=== PATIENT | female | born 1935 | race Caucasian/White ===

== ENCOUNTER 2018-05-30 12:39 | Emergency (ER) | payer MEDICARE ==
[~2018-05-30] VITALS: Ht 154.9 cm; Wt 63.5 kg
[~2018-05-30 12:39] MED LIST: AMBIEN10 MG PO
--- NOTE | 2018-05-30 14:36 | Diagnostic Imaging Report ---
Exam: Right knee radiographs-3 views History: Knee pain. Comparison: None. Findings: No evidence of acute fracture, malalignment, or soft tissue abnormality. There are moderate lateral and patellofemoral compartment predominant degenerative changes. Atherosclerotic vascular calcifications. 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 No acute osseous abnormality. Signed by: Dr. Jun Mcgowan MD on 05/30/2018 2:33 PM
[2018-05-30] MEDS ORDERED: ULTRAM 50MG50 MG PO (15:02)
[2018-05-30] MEDS ORDERED: CLONIDINE HCL 0.2 MG TAB PO ONE (16:45)
[2018-05-30 18:58] VITALS: BP 196/96
== END 2018-05-30 17:18 | disposition home or self-care (01) ==
LOC: ER 12:39
DX: M25.561 Pain in right knee (principal); R26.2 Difficulty in walking, not elsewhere classified
CPT/HCPCS: 99283

== ENCOUNTER 2020-12-31 18:26 | Inpatient (IN) | payer MEDICARE ==
[~2020-12-31] VITALS: Ht 152.4 cm; Wt 50.3 kg
[~2020-12-31 18:26] MED LIST changes: +ULTRAM 50MG50 MG PO
[2020-12-31 19:55] LABS: BASOPHILS # (AUTO) 0.1 (0.0-0.1); BASOPHILS % 0.6 % (0.0-1.0); EOSINOPHILS % 0.1 % (0.0-6.0); HEMATOCRIT 41.5 % (34.2-44.1); HEMOGLOBIN 13.6 g/dL (12.0-16.0); LYMPHOCYTES # (AUTO) 1.8 (1.0-3.2); LYMPHOCYTES % 12.3 % (18.0-39.1); MEAN CORPUSCULAR HGB CONC 32.8 g/dL (31-35); MEAN CORPUSCULAR VOLUME 97.6 fL (81-99); MONOCYTES # (AUTO) 1.1 (0.2-0.8); MONOCYTES % 7.6 % (4.4-11.3); NEUTROPHILS # (AUTO) 11.2 (2.1-6.9); NEUTROPHILS % 78.7 % (38.7-80.0); PLATELET COUNT 281 x10e3/uL (140-360); RED BLOOD COUNT 4.25 x10e6/uL (3.6-5.1); RED CELL DISTRIBUTION WIDTH 12.4 % (11.7-14.4)
[2020-12-31 19:59] LABS: INR 1.1; PROTHROMBIN TIME 14.4 seconds (11.9-14.5)
[2020-12-31 20:00] LABS: PARTIAL THROMBOPLASTIN TIME 30.1 seconds (23.8-35.5)
[2020-12-31 20:10] LABS: ALBUMIN 2.9 g/dL (3.5-5.0); ALBUMIN/GLOBULIN RATIO 0.8 (0.8-2.0); CALCIUM 10.2 mg/dL (8.4-10.2); CREATININE, SERUM 0.83 mg/dL (0.57-1.11)
[2020-12-31 20:11] LABS: AMYLASE 39 U/L (25-125); LIPASE 33 U/L (8-78)
[2020-12-31] MEDS ORDERED: IOPAMIDOL 370 MG/ML 200 ML INFUS..BTL INJ ONE (22:14)
[2020-12-31] MEDS ORDERED: ONDANSETRON HCL INJ 2MG/ML 2ML 2 MG/ML VIAL IV PRN (22:15)
[2020-12-31] MEDS: SODIUM CHLORIDE 0.9% 1000ML 1,000 ML IV SCH (22:15)
[2020-12-31] MEDS ORDERED: SODIUM CHLORIDE 0.9% 50ML 50 ML ONE (22:15)
[2021-01-01] MEDS: SODIUM CHLORIDE 0.9% 1000ML 1,000 ML IV SCH ×2 (06:22→11:38)
[2021-01-01 07:13] LABS: CLARITY,URINE CLEAR (CLEAR); COLOR,URINE YELLOW (YELLOW)
[2021-01-01 07:14] LABS: KETONES,URINE NEGATIVE (NEGATIVE); LEUKOCYTE ESTERASE ,URINE NEGATIVE (NEGATIVE); NITRITE,URINE NEGATIVE (NEGATIVE); PROTEIN,URINE DIPSTICK 1+ (NEGATIVE); URINE UROBILINOGEN 0.2 mg/dL (0.2 - 1)
[2021-01-01 07:47] LABS: BACTERIA,URINE MODERATE /HPF; EPITHELIAL CELLS,URINE MODERATE /LPF; RBC,URINE 0-5 /HPF (0-5); WBC,URINE (MAN) >50 /HPF (0-5)
[2021-01-01] MEDS ORDERED: ZOLPIDEM TARTRATE 10 MG TAB PO PRN (09:00)
[2021-01-01] MEDS ORDERED: TRAMADOL HCL 50 MG TAB PO PRN (09:00)
[2021-01-01] MEDS: CEFTRIAXONE 1 GM in SODIUM CHLORIDE 0.9% 50ML 50 ML IV SCH ×2 (09:10→20:21)
[2021-01-01 11:30] VITALS: BP 129/54
[2021-01-01 11:43] VITALS: BP 129/54
[2021-01-01 11:48] VITALS: BP 129/54
[2021-01-01 12:16] LABS: BASOPHILS # (AUTO) 0.1 (0.0-0.1); BASOPHILS % 0.8 % (0.0-1.0); EOSINOPHILS # (AUTO) 0.2 (0.0-0.4); EOSINOPHILS % 1.3 % (0.0-6.0); HEMATOCRIT 36.4 % (34.2-44.1); HEMOGLOBIN 11.8 g/dL (12.0-16.0); LYMPHOCYTES # (AUTO) 2.4 (1.0-3.2); LYMPHOCYTES % 18.1 % (18.0-39.1); MEAN CORPUSCULAR HEMOGLOBIN 31.6 pg (28-32); MEAN CORPUSCULAR HGB CONC 32.4 g/dL (31-35); MEAN CORPUSCULAR VOLUME 97.6 fL (81-99); MONOCYTES # (AUTO) 1.4 (0.2-0.8); MONOCYTES % 10.8 % (4.4-11.3); NEUTROPHILS # (AUTO) 9.1 (2.1-6.9); PLATELET COUNT 254 x10e3/uL (140-360); RED BLOOD COUNT 3.73 x10e6/uL (3.6-5.1); RED CELL DISTRIBUTION WIDTH 12.4 % (11.7-14.4)
[2021-01-01 12:55] LABS: ALBUMIN 2.6 g/dL (3.5-5.0); ALBUMIN/GLOBULIN RATIO 0.7 (0.8-2.0); CALCIUM 9.7 mg/dL (8.4-10.2); CREATININE, SERUM 0.71 mg/dL (0.57-1.11)
[2021-01-01 16:35] VITALS: BP 139/70
[2021-01-01 20:00] VITALS: BP 170/72
[2021-01-01 22:58] VITALS: BP 170/72
[2021-01-02] VITALS: BP 143/65
[2021-01-02 04:00] VITALS: BP 140/66
[2021-01-02 06:26] LABS: BASOPHILS # (AUTO) 0.1 (0.0-0.1); BASOPHILS % 1.1 % (0.0-1.0); EOSINOPHILS # (AUTO) 0.5 (0.0-0.4); EOSINOPHILS % 4.2 % (0.0-6.0); HEMATOCRIT 31.9 % (34.2-44.1); HEMOGLOBIN 11.2 g/dL (12.0-16.0); LYMPHOCYTES # (AUTO) 2.4 (1.0-3.2); LYMPHOCYTES % 20.5 % (18.0-39.1); MEAN CORPUSCULAR HEMOGLOBIN 34.8 pg (28-32); MEAN CORPUSCULAR HGB CONC 35.1 g/dL (31-35); MEAN CORPUSCULAR VOLUME 99.1 fL (81-99); MONOCYTES # (AUTO) 1.2 (0.2-0.8); MONOCYTES % 10.5 % (4.4-11.3); NEUTROPHILS # (AUTO) 7.2 (2.1-6.9); NEUTROPHILS % 62.6 % (38.7-80.0); PLATELET COUNT 203 x10e3/uL (140-360); RED BLOOD COUNT 3.22 x10e6/uL (3.6-5.1)
[2021-01-02 06:50] LABS: CALCIUM 9.2 mg/dL (8.4-10.2); CREATININE, SERUM 0.66 mg/dL (0.57-1.11)
[2021-01-02 07:57] VITALS: BP 145/71
[2021-01-02 08:00] VITALS: BP 145/71
[2021-01-02] MEDS: SODIUM CHLORIDE 0.9% 1000ML 1,000 ML IV SCH (08:00)
[2021-01-02] MEDS: CEFTRIAXONE 1 GM in SODIUM CHLORIDE 0.9% 50ML 50 ML IV SCH (09:00)
[2021-01-02 12:00] VITALS: BP 145/73
== END 2021-01-02 13:47 | disposition home or self-care (01) | DRG 378 ==
LOC: ER 18:58 → ERHOLD 22:06 → MED/SURG2 01-01 09:54 → OBSVTOIN 01-01 11:50
PROVIDERS: ADMIT Internal Medicine; ATTEND Internal Medicine
DX: K92.1 Melena (principal); N13.6 Pyonephrosis; R74.01 Elevation of levels of liver transaminase levels; M51.36 Other intervertebral disc degeneration, lumbar region; F17.210 Nicotine dependence, cigarettes, uncomplicated; K80.20 Calculus of gallbladder without cholecystitis without obstruction; K57.90 Diverticulosis of intestine, part unspecified, without perforation or abscess without bleeding; Z20.822 Contact with and (suspected) exposure to COVID-19
CPT/HCPCS: 36415; 74018; 74177; 80048; 80053; 81001; 82150; 83690; 83970; 84550; 85025; 85610; 85730; 87086; 99284; G0378; J0696; J7030; Q9967; U0002

== ENCOUNTER 2024-03-15 17:16 | Inpatient (IN) | payer MEDICARE ==
[~2024-03-15] VITALS: Ht 152.4 cm; Wt 54.9 kg
[~2024-03-15 17:16] MED LIST changes: +NAPROSYN500 MG PO
[2024-03-15] MEDS ORDERED: SODIUM CHLORIDE FLUSH 10 ML SYR IV PRN (17:45)
[2024-03-15] MEDS ORDERED: KETOROLAC TROMETHAMINE 30 MG/ML VIAL ONE (17:49)
[2024-03-15] MEDS ORDERED: ONDANSETRON HCL INJ 2MG/ML 2ML 2 MG/ML VIAL ONE (17:49)
[2024-03-15 17:52] LABS: BASOPHILS # (AUTO) 0.2 (0.0-0.1); EOSINOPHILS # (AUTO) 0.2 (0.0-0.4); HEMATOCRIT 44.3 % (34.2-44.1); HEMOGLOBIN 14.1 g/dL (12.0-16.0); LYMPHOCYTES # (AUTO) 2.2 (1.0-3.2); LYMPHOCYTES % 14.3 % (18.0-39.1); MEAN CORPUSCULAR HEMOGLOBIN 32.1 pg (28-32); MEAN CORPUSCULAR HGB CONC 31.8 g/dL (31-35); MEAN CORPUSCULAR VOLUME 100.9 fL (81-99); MONOCYTES # (AUTO) 0.7 (0.2-0.8); MONOCYTES % 4.5 % (4.4-11.3); NEUTROPHILS # (AUTO) 12.3 (2.1-6.9); NEUTROPHILS % 78.9 % (38.7-80.0); PLATELET COUNT 306 x10e3/uL (140-360); RED BLOOD COUNT 4.39 x10e6/uL (3.6-5.1); RED CELL DISTRIBUTION WIDTH 12.8 % (11.7-14.4); WHITE BLOOD COUNT 15.61 x10e3/uL (4.8-10.8)
[2024-03-15] MEDS: KETOROLAC TROMETHAMINE 30 MG/ML VIAL IV STA (17:55)
[2024-03-15] MEDS: ONDANSETRON HCL INJ 2MG/ML 2ML 2 MG/ML VIAL IV STA (17:55)
[2024-03-15] MEDS: SODIUM CHLORIDE 0.9% 1000ML 1,000 ML IV ONE (17:56)
[2024-03-15 18:11] LABS: ALBUMIN 3.8 g/dL (3.5-5.0); BILIRUBIN,TOTAL 0.4 mg/dL (0.2-1.2); CREATININE, SERUM 1.02 mg/dL (0.57-1.11); TOTAL PROTEIN 7.7 g/dL (6.5-8.1)
[2024-03-15] MEDS ORDERED: ONDANSETRON HCL INJ 2MG/ML 2ML 2 MG/ML VIAL IV PRN (19:30)
[2024-03-15] MEDS: Morphine 4mg INJECTION 4 MG/ML INJ IV PRN (20:50)
[2024-03-15] MEDS: SODIUM CHLORIDE 0.9% 1000ML 1,000 ML IV SCH (20:50)
[2024-03-15 21:00] VITALS: PULSE 93; RESP 16; TEMP 98
[2024-03-15] MEDS ORDERED: MELOXICAM7.5 MG PO (22:07)
[2024-03-15] MEDS ORDERED: TRAZODONE HCL100 MG PO (22:07)
[2024-03-15] MEDS ORDERED: FLUTICASONE PRO16 GM INH (22:07)
[2024-03-15] MEDS ORDERED: LORATADINE10 MG PO (22:07)
[2024-03-15] MEDS ORDERED: LISINOPRIL2.5 MG PO (22:07)
[2024-03-15 22:17] VITALS: BP 119/70; PULSE 89; RESP 18; TEMP 98.3; O2SAT 94
[2024-03-15 22:30] VITALS: BP 119/70; PULSE 89; RESP 18; TEMP 98.3; O2SAT 94
[2024-03-15] MEDS ORDERED: INFLUENZA VIRUS VAC SPLIT INJ 0.5 ML SYR IM ONE (22:31)
[2024-03-15] MEDS ORDERED: PNEUMOCOCCAL VACCINE POLYVALENT 23 MCG/0.5 ML VIAL IM ONE (22:31)
[2024-03-15 23:32] VITALS: PULSE 95; RESP 17; O2SAT 95
[2024-03-16] VITALS (9 sets, daily range): BP systolic 100–147; BP diastolic 54–76; PULSE 72–100; RESP 14–20; TEMP 97.2–98.4; O2SAT 92–98
[2024-03-16 06:55] LABS: CLARITY,URINE TURBID (CLEAR); COLOR,URINE YELLOW (YELLOW); GLUCOSE, URINE NEGATIVE (NEGATIVE); KETONES,URINE 1+ (NEGATIVE); LEUKOCYTE ESTERASE ,URINE MODERATE (NEGATIVE); NITRITE,URINE POSITIVE (NEGATIVE); PH,URINE 5.5 (5 - 7); PROTEIN,URINE DIPSTICK 2+ (NEGATIVE); URINE UROBILINOGEN 0.2 mg/dL (0.2 - 1)
[2024-03-16 06:56] LABS: BILIRUBIN,URINE SMALL (NEGATIVE)
[2024-03-16 07:00] LABS: BACTERIA,URINE MANY /HPF; EPITHELIAL CELLS,URINE FEW /LPF; WBC,URINE (MAN) >50 /HPF (0-5)
[2024-03-16 08:05] LABS: BASOPHILS # (AUTO) 0.1 (0.0-0.1); BASOPHILS % 0.3 % (0.0-1.0); EOSINOPHILS % 0.1 % (0.0-6.0); HEMATOCRIT 39.5 % (34.2-44.1); HEMOGLOBIN 12.2 g/dL (12.0-16.0); LYMPHOCYTES # (AUTO) 1.3 (1.0-3.2); LYMPHOCYTES % 4.6 % (18.0-39.1); MEAN CORPUSCULAR HEMOGLOBIN 32.4 pg (28-32); MEAN CORPUSCULAR HGB CONC 30.9 g/dL (31-35); MEAN CORPUSCULAR VOLUME 104.8 fL (81-99); MONOCYTES # (AUTO) 1.9 (0.2-0.8); NEUTROPHILS # (AUTO) 23.9 (2.1-6.9); NEUTROPHILS % 86.6 % (38.7-80.0); PLATELET COUNT 205 x10e3/uL (140-360); RED BLOOD COUNT 3.77 x10e6/uL (3.6-5.1); RED CELL DISTRIBUTION WIDTH 13.2 % (11.7-14.4); WHITE BLOOD COUNT 27.62 x10e3/uL (4.8-10.8)
[2024-03-16 08:29] LABS: ALBUMIN 2.8 g/dL (3.5-5.0); ALBUMIN/GLOBULIN RATIO 0.9 (0.8-2.0); ANION GAP 14.5 mmol/L (8-16); BILIRUBIN,TOTAL 0.8 mg/dL (0.2-1.2); CALCIUM 9.3 mg/dL (8.4-10.2); CREATININE, SERUM 1.26 mg/dL (0.57-1.11); POTASSIUM 4.5 mmol/L (3.5-5.1); TOTAL PROTEIN 5.9 g/dL (6.5-8.1)
[2024-03-16] MEDS ORDERED: ALBUTEROL/IPRATROPIUM 3 ML NEB NEB PRN (09:45)
[2024-03-16] MEDS ORDERED: ACETAMINOPHEN 325 MG TAB PO PRN (09:45)
[2024-03-16] MEDS: PHENAZOPYRIDINE HCL 100 MG TAB PO PRN (13:34)
[2024-03-16] MEDS: ACETAMINOPHEN/CODEINE 300MG - 30MG TAB PO PRN (13:36)
[2024-03-16 15:21] LABS: BAND NEUTROPHILS % (MANUAL) 20 %; LYMPHOCYTES % (MANUAL) 6 % (19-48); MONOCYTES % (MANUAL) 6 % (3.4-9.0); NEUTROPHILS % (MANUAL) 68 % (40-74); PLATELET ESTIMATE ADEQUATE; PLATELET MORPHOLOGY COMMENT NORMAL; RBC MORPHOLOGY COMMENT NORMAL
[2024-03-16] MEDS: ALBUTEROL/IPRATROPIUM 3 ML NEB NEB SCH (19:00)
[2024-03-16] MEDS: TRAZODONE HCL 50 MG TAB PO SCH (20:26)
[2024-03-17] VITALS (11 sets, daily range): BP systolic 109–165; BP diastolic 55–94; PULSE 82–92; RESP 16–21; TEMP 97.7–98.6; O2SAT 94–100
[2024-03-17 08:19] LABS: BASOPHILS # (AUTO) 0.1 (0.0-0.1); BASOPHILS % 0.3 % (0.0-1.0); HEMATOCRIT 34.1 % (34.2-44.1); HEMOGLOBIN 10.7 g/dL (12.0-16.0); LYMPHOCYTES # (AUTO) 1.4 (1.0-3.2); LYMPHOCYTES % 5.8 % (18.0-39.1); MEAN CORPUSCULAR HEMOGLOBIN 32.5 pg (28-32); MEAN CORPUSCULAR HGB CONC 31.4 g/dL (31-35); MEAN CORPUSCULAR VOLUME 103.6 fL (81-99); MONOCYTES # (AUTO) 1.1 (0.2-0.8); MONOCYTES % 4.7 % (4.4-11.3); NEUTROPHILS # (AUTO) 20.6 (2.1-6.9); NEUTROPHILS % 88.3 % (38.7-80.0); PLATELET COUNT 172 x10e3/uL (140-360); RED BLOOD COUNT 3.29 x10e6/uL (3.6-5.1); RED CELL DISTRIBUTION WIDTH 13.9 % (11.7-14.4); WHITE BLOOD COUNT 23.36 x10e3/uL (4.8-10.8)
[2024-03-17 08:39] LABS: ANION GAP 14.1 mmol/L (8-16); CREATININE, SERUM 1.16 mg/dL (0.57-1.11); POTASSIUM 4.1 mmol/L (3.5-5.1)
[2024-03-17] MEDS: LISINOPRIL 2.5 MG TAB PO SCH (09:00)
[2024-03-17] MEDS: SOLIFENACIN SUCCINATE 5 MG TAB PO SCH (09:28)
[2024-03-17] MEDS: PANTOPRAZOLE SOD 40 MG TABEC PO SCH (09:29)
[2024-03-17] MEDS: LORATADINE 10 MG TAB PO SCH (09:29)
[2024-03-17] MEDS: BISACODYL 10 MG SUPP PR ONE (10:45)
[2024-03-17] MEDS: SENNA-S TABLET PO SCH (17:00)
[2024-03-18] VITALS (11 sets, daily range): BP systolic 149–169; BP diastolic 72–81; PULSE 76–90; RESP 16–19; TEMP 98.1–99.1; O2SAT 91–97
[2024-03-19] VITALS (7 sets, daily range): BP systolic 161–187; BP diastolic 75–87; PULSE 72–98; RESP 17–22; TEMP 97.6–98; O2SAT 94–99
[2024-03-19 05:14] LABS: CALCIUM 8.8 mg/dL (8.7-10.3)
[2024-03-19 07:57] LABS: BASOPHILS # (AUTO) 0.1 (0.0-0.1); BASOPHILS % 0.7 % (0.0-1.0); EOSINOPHILS # (AUTO) 0.5 (0.0-0.4); EOSINOPHILS % 5.6 % (0.0-6.0); HEMATOCRIT 33.3 % (34.2-44.1); LYMPHOCYTES # (AUTO) 1.9 (1.0-3.2); LYMPHOCYTES % 19.6 % (18.0-39.1); MEAN CORPUSCULAR HEMOGLOBIN 32.7 pg (28-32); MEAN CORPUSCULAR VOLUME 99.1 fL (81-99); MONOCYTES # (AUTO) 1.1 (0.2-0.8); MONOCYTES % 11.2 % (4.4-11.3); NEUTROPHILS % 62.3 % (38.7-80.0); PLATELET COUNT 193 x10e3/uL (140-360); RED BLOOD COUNT 3.36 x10e6/uL (3.6-5.1); RED CELL DISTRIBUTION WIDTH 13.9 % (11.7-14.4); WHITE BLOOD COUNT 9.63 x10e3/uL (4.8-10.8)
[2024-03-19 08:17] LABS: ANION GAP 10.9 mmol/L (8-16); CALCIUM 9.2 mg/dL (8.4-10.2); CREATININE, SERUM 0.77 mg/dL (0.57-1.11); POTASSIUM 3.9 mmol/L (3.5-5.1)
[2024-03-19] MEDS: LISINOPRIL 10 MG TAB PO SCH (09:04)
[2024-03-19] MEDS: HYDRALAZINE HCL 25 MG TAB PO PRN (13:17)
[2024-03-19] MEDS: NIFEDIPINE CR 30 MG TAB PO ONE (15:01)
[2024-03-19] MEDS ORDERED: INFLUENZA VIRUS VAC SPLIT INJ 0.5 ML SYR IM ONE (15:19)
[2024-03-19] MEDS ORDERED: PNEUMOCOCCAL VACCINE POLYVALENT 23 MCG/0.5 ML VIAL ONE (15:21)
[2024-03-20] MEDS ORDERED: NIFEDIPINE CR 30 MG TAB PO SCH (09:00)
== END 2024-03-19 15:45 | disposition home or self-care (01) | DRG 661 ==
LOC: ER 17:40 → ERHOLD 19:25 → MED/SURG3 21:11 → MED/SURG 21:26
PROVIDERS: ADMIT Internal Medicine; ATTEND Internal Medicine
PROC: 0T778DZ Dilation of Left Ureter with Intraluminal Device, Via Natural or Artificial Opening Endoscopic (ICD-10-PCS; 2024-03-16)
PROC: 0UJH7ZZ Inspection of Vagina and Cul-de-sac, Via Natural or Artificial Opening (ICD-10-PCS; 2024-03-16)
PROC: BT141ZZ Fluoroscopy of Kidneys, Ureters and Bladder using Low Osmolar Contrast (ICD-10-PCS; principal; 2024-03-16 10:13)
DX: N13.6 Pyonephrosis (principal); B96.20 Unspecified Escherichia coli [E. coli] as the cause of diseases classified elsewhere; N17.9 Acute kidney failure, unspecified; R31.9 Hematuria, unspecified; D64.9 Anemia, unspecified; N39.3 Stress incontinence (female) (male); N95.2 Postmenopausal atrophic vaginitis; N36.41 Hypermobility of urethra; N81.10 Cystocele, unspecified; N81.6 Rectocele; I10 Essential (primary) hypertension; J44.9 Chronic obstructive pulmonary disease, unspecified; F17.200 Nicotine dependence, unspecified, uncomplicated; M19.91 Primary osteoarthritis, unspecified site; Z79.899 Other long term (current) drug therapy
CPT/HCPCS: 36415; 74176; 74420; 80048; 80053; 81001; 83970; 84550; 85025; 87086; 87186; 90732; 94640; 94799; 99284; C1769; C2617; J0696; J1885; J2270; J2405; J2470; J2543; J7030

== ENCOUNTER → 2024-05-10 | Day surgery (SDC) | payer MEDICARE ==
[2024-05-09 15:03] LABS: BASOPHILS # (AUTO) 0.1 (0.0-0.1); BASOPHILS % 1.3 % (0.0-1.0); EOSINOPHILS # (AUTO) 0.2 (0.0-0.4); EOSINOPHILS % 1.6 % (0.0-6.0); HEMATOCRIT 38.8 % (34.2-44.1); HEMOGLOBIN 11.9 g/dL (12.0-16.0); LYMPHOCYTES # (AUTO) 3.9 (1.0-3.2); LYMPHOCYTES % 36.6 % (18.0-39.1); MEAN CORPUSCULAR HEMOGLOBIN 31.2 pg (28-32); MEAN CORPUSCULAR HGB CONC 30.7 g/dL (31-35); MEAN CORPUSCULAR VOLUME 101.6 fL (81-99); MONOCYTES # (AUTO) 0.8 (0.2-0.8); MONOCYTES % 7.3 % (4.4-11.3); NEUTROPHILS # (AUTO) 5.7 (2.1-6.9); NEUTROPHILS % 52.8 % (38.7-80.0); PLATELET COUNT 368 x10e3/uL (140-360); RED BLOOD COUNT 3.82 x10e6/uL (3.6-5.1); RED CELL DISTRIBUTION WIDTH 12.2 % (11.7-14.4); WHITE BLOOD COUNT 10.76 x10e3/uL (4.8-10.8)
[2024-05-09 15:41] LABS: ANION GAP 15.3 mmol/L (8-16); CALCIUM 10.5 mg/dL (8.4-10.2); CREATININE, SERUM 0.82 mg/dL (0.57-1.11); POTASSIUM 4.3 mmol/L (3.5-5.1)
[~2024-05-10] MED LIST changes: +ACETAMINOPHEN/CODEINE 300MG - 30MG TAB ONE; +DEXAMETHASONE SOD PHOS INJ 4 MG/ML SDV ONE; +EPHEDRINE SULFATE INJ 50 MG/ML VIAL ONE; +FENTANYL CITRATE/PF 100MCG/2 ML INJ ONE; +FISH OIL 1,0001 EAC7 PO; +FLUTICASONE PRO16 GM INH; +LIDOCAINE HCL 2% LOCAL INJ 5 ML SDV VIAL INJ ONE; +LISINOPRIL2.5 MG PO; +LORATADINE10 MG PO; +MELOXICAM7.5 MG PO; +MONTELUKAST SOD10 MG PO; +ONDANSETRON HCL 4 MG ORAL DISINTEGRATING TAB ONE; +ONDANSETRON HCL INJ 2MG/ML 2ML 2 MG/ML VIAL ONE; +PROPOFOL IV EMULSION 10 MG/ML 20 ML VIAL ONE; +SEVOFLURANE INHAL SOLN 250 ML PEN BTL ONE; +TRAZODONE HCL100 MG PO; +VIT B6 PO; +ZINC PO
[2024-05-10] MEDS: LACTATED RINGER'S 1,000 ML ONE (07:16)
[2024-05-10] MEDS: CEFTRIAXONE 1 GM VIAL ONE (07:17)
[2024-05-10] MEDS: GENTAMICIN 80MG/NS 100 ML 100 ML IV ONE (07:17)
[2024-05-10] MEDS: ALBUTEROL/IPRATROPIUM 3 ML NEB ONE (08:05)
[2024-05-10] MEDS: PHENAZOPYRIDINE HCL 100 MG TAB ONE ×2 (12:05)
[2024-05-10] MEDS: ONDANSETRON HCL 4 MG ORAL DISINTEGRATING TAB PO ONE (12:25)
[2024-05-10] MEDS: ACETAMINOPHEN/CODEINE 300MG - 30MG TAB PO ONE (12:42)
[2024-05-10 13:10] VITALS: BP 177/87; PULSE 90; RESP 16; O2SAT 94
== END | disposition home or self-care (01) ==
LOC: OR 06:51
PROVIDERS: ATTEND Urology
DX: N20.0 Calculus of kidney (principal); Z46.6 Encounter for fitting and adjustment of urinary device; N81.10 Cystocele, unspecified; N81.6 Rectocele; N39.0 Urinary tract infection, site not specified; N95.2 Postmenopausal atrophic vaginitis; D64.9 Anemia, unspecified; I25.10 Atherosclerotic heart disease of native coronary artery without angina pectoris; I10 Essential (primary) hypertension; E78.5 Hyperlipidemia, unspecified; M06.9 Rheumatoid arthritis, unspecified; F17.200 Nicotine dependence, unspecified, uncomplicated; Z01.810 Encounter for preprocedural cardiovascular examination; Z01.812 Encounter for preprocedural laboratory examination; Z01.818 Encounter for other preprocedural examination; Z79.1 Long term (current) use of non-steroidal anti-inflammatories (NSAID); Z79.899 Other long term (current) drug therapy
CPT/HCPCS: 36415; 52352; 71046; 74420; 80048; 84550; 85025; 87086; 87186; 88300; 93005; C1769; J0696; J1100; J1580; J2003; J2405; J2704; J3010; J7121; Q0162

== ENCOUNTER 2024-05-24 18:53 | Observation (INO) | payer MEDICARE ==
[~2024-05-24] VITALS: Ht 154.9 cm; Wt 51.7 kg
[~2024-05-24 18:53] MED LIST changes: -ACETAMINOPHEN/CODEINE 300MG - 30MG TAB ONE; -DEXAMETHASONE SOD PHOS INJ 4 MG/ML SDV ONE; -EPHEDRINE SULFATE INJ 50 MG/ML VIAL ONE; -FENTANYL CITRATE/PF 100MCG/2 ML INJ ONE; -LIDOCAINE HCL 2% LOCAL INJ 5 ML SDV VIAL INJ ONE; -ONDANSETRON HCL 4 MG ORAL DISINTEGRATING TAB ONE; -ONDANSETRON HCL INJ 2MG/ML 2ML 2 MG/ML VIAL ONE; -PROPOFOL IV EMULSION 10 MG/ML 20 ML VIAL ONE; -SEVOFLURANE INHAL SOLN 250 ML PEN BTL ONE
[2024-05-24] MEDS: SODIUM CHLORIDE 0.9% 500ML 500 ML IV ONE (19:28)
[2024-05-24] MEDS ORDERED: SODIUM CHLORIDE FLUSH 10 ML SYR INJ PRN (21:00)
[2024-05-24 22:27] VITALS: TEMP 97.7
[2024-05-24 23:15] VITALS: PULSE 71; RESP 22
[2024-05-25 00:19] VITALS: BP 113/57; PULSE 80; RESP 19; TEMP 97.9; O2SAT 99
[2024-05-25 00:30] VITALS: BP 113/57; PULSE 80; RESP 19; TEMP 97.9; O2SAT 99
[2024-05-25 05:00] VITALS: BP 108/60; PULSE 81; RESP 19; TEMP 98.1; O2SAT 98
[2024-05-25 08:04] LABS: TROPONIN I 0.041 ng/mL (0-0.300)
[2024-05-25 09:10] VITALS: BP 106/59; PULSE 72; RESP 18; TEMP 98.4; O2SAT 97
[2024-05-25 09:59] VITALS: BP 106/59; PULSE 72; RESP 18; TEMP 98.4; O2SAT 97
[2024-05-25 10:26] LABS: ANION GAP 14.4 mmol/L (8-16); CALCIUM 9.8 mg/dL (8.4-10.2); CREATININE, SERUM 0.85 mg/dL (0.57-1.11); POTASSIUM 4.4 mmol/L (3.5-5.1)
[2024-05-25 10:28] LABS: BASOPHILS # (AUTO) 0.1 (0.0-0.1); BASOPHILS % 1.4 % (0.0-1.0); EOSINOPHILS # (AUTO) 0.4 (0.0-0.4); EOSINOPHILS % 4.6 % (0.0-6.0); HEMATOCRIT 32.8 % (34.2-44.1); HEMOGLOBIN 10.3 g/dL (12.0-16.0); LYMPHOCYTES # (AUTO) 2.5 (1.0-3.2); LYMPHOCYTES % 28.2 % (18.0-39.1); MEAN CORPUSCULAR HEMOGLOBIN 30.4 pg (28-32); MEAN CORPUSCULAR HGB CONC 31.4 g/dL (31-35); MEAN CORPUSCULAR VOLUME 96.8 fL (81-99); MONOCYTES # (AUTO) 0.9 (0.2-0.8); MONOCYTES % 9.8 % (4.4-11.3); NEUTROPHILS # (AUTO) 4.9 (2.1-6.9); NEUTROPHILS % 55.8 % (38.7-80.0); PLATELET COUNT 336 x10e3/uL (140-360); RED BLOOD COUNT 3.39 x10e6/uL (3.6-5.1); RED CELL DISTRIBUTION WIDTH 13.5 % (11.7-14.4); WHITE BLOOD COUNT 8.86 x10e3/uL (4.8-10.8)
[2024-05-25] MEDS: FUROSEMIDE INJ 10 MG/ML 4 ML VIAL IV ONE (11:39)
[2024-05-25] MEDS: POTASSIUM CHLORIDE 20 MEQ TAB CR PO ONE (11:40)
== END 2024-05-25 12:20 | disposition home or self-care (01) ==
LOC: FSED 19:00 → ERHOLD 20:52 → MED/SURG2 05-25 00:16
PROVIDERS: ADMIT Internal Medicine; ATTEND Internal Medicine
DX: J20.9 Acute bronchitis, unspecified (principal); J81.1 Chronic pulmonary edema; J84.9 Interstitial pulmonary disease, unspecified; I31.39 Other pericardial effusion (noninflammatory); R00.0 Tachycardia, unspecified; I10 Essential (primary) hypertension; E78.5 Hyperlipidemia, unspecified; F01.50 Vascular dementia, unspecified severity, without behavioral disturbance, psychotic disturbance, mood disturbance, and anxiety; Z91.148 Patient's other noncompliance with medication regimen for other reason; K80.20 Calculus of gallbladder without cholecystitis without obstruction; M19.91 Primary osteoarthritis, unspecified site; Z79.899 Other long term (current) drug therapy
CPT/HCPCS: 36415; 70450; 71045; 71260; 80048; 80053; 81003; 82550; 82553; 83880; 84484 ×2; 85025 ×2; 85379; 93005; 99284; G0378 ×2; J0696 ×2; J1940; 80076